=== PATIENT | male | born 1955 | race Caucasian/White ===

== ENCOUNTER 2017-07-01 14:46 | Emergency (ER) | payer BC ==
[2017-07-01] MEDS ORDERED: NITROGLYCERIN 0.4MG SL TABLET #25 BTL SL PRN (15:14)
[2017-07-01 15:32] LABS: BASO % 0.2 % (0-6); EOS % 1.1 % (0-6); HEMATOCRIT 43.2 % (42.0-52.0); HEMOGLOBIN 14.9 gm/dl (14.0-18.0); LYMPH % 9.4 % (16-45); MEAN CELL VOLUME 86.2 fl (81-97); MEAN CORPUSCULAR HEMOGLOBIN 29.7 pg (27-33); MEAN CORPUSCULAR HGB CONC 34.5 g/dl (32-36); MEAN PLATELET VOLUME 9.7 fl (7.4-10.4); MONO % 11.3 % (0-9); PLATELET COUNT 207 K/uL (130-400); RED BLOOD COUNT 5.01 M/uL (4.40-5.70); RED CELL DISTRIBUTION WIDTH 13.5 % (11.5-14.5); WHITE BLOOD COUNT W/O DIFF 9.5 K/uL (4.2-12.2)
[2017-07-01] MEDS: ASPIRIN 81 MG CHEWABLE TABLET PO ONE (15:34)
[2017-07-01 15:51] LABS: PARTIAL THROMBOPLASTIN TIME 28.7 SECONDS (24.5-39.1)
[2017-07-01 16:03] LABS: ALB/GLOB RATIO 1.1 (1.1-1.8); ALBUMIN 3.6 g/dL (4.0-5.0); ALKALINE PHOSPHATASE 116 U/L (40-129); ALT/SGPT 21 U/L (<41); AST/SGOT 18 U/L (10.0-50.0); BLOOD UREA NITROGEN 17 mg/dL (8-23); CREATINE PHOSPHOKINASE 26 U/L (39-308); CREATININE 1.2 mg/dL (0.7-1.2); EST GLOMERULAR FILTRATION RATE > 60 mL/min; GLUCOSE,RANDOM 125 mg/dL (74-109)
[2017-07-01 16:04] LABS: CKMB < 1.0 ng/mL (<6.73); TROPONIN I < 0.30 ng/mL (0.00-0.300)
--- NOTE | 2017-07-01 16:43 | Emergency Department Record ---
History of Present Illness - General Chief Complaint: Chest Pain Stated Complaint: CHEST PAIN Time Seen by Provider: 07/01/17 15:08 Source: Patient Mode of Arrival: Wheelchair Limitations: No limitations - History of Present Illness Initial Comments: pt thought he had a heart attack last night. he took 5 ntg and the pain got better. he had a drenching sweat with it. his pain is a 1 now.he states the pain is like his previous mi pain MD Complaint: Chest pain Onset/Timin -: Hour(s) Onset: During rest Pain Location: Left chest Pain Radiation: None Severity scale (1-10): 4 Quality: Other Consistency: Constant Improves With: Nothing Worsens With: Nothing Anginal Symptoms: Nausea - Related Data Allergies Allergy/AdvReac Type Severity Reaction Status Date / Time No Known Allergies Allergy Unverified 02/26/17 07:15 Travel Screening - Travel/Exposure Within Last 30 Days Have you traveled within the last 30 days?: No Review of Systems Reviewed: No additional complaints except as noted below Constitutional: Reports: As per HPI. Denies: Chills, Fever, Malaise, Night sweats, Weakness, Weight change Eyes: Reports: As per HPI. Denies: Eye discharge, Eye pain, Photophobia, Vision change ENT: Reports: As per HPI. Denies: Congestion, Dental pain, Ear pain, Epistaxis , Hearing loss, Throat pain Respiratory: Reports: As per HPI. Denies: Cough, Dyspnea, Hemoptysis, Stridor, Wheezes Cardiovascular: Reports: As per HPI. Denies: Arrhythmia, Chest pain, Dyspnea on exertion, Edema, Murmurs, Orthopnea, Palpitations, Paroxysmal nocturnal dyspnea, Rheumatic Fever, Syncope Endocrine: Reports: As per HPI. Denies: Fatigue, Heat or cold intolerance, Polydipsia, Polyuria Gastrointestinal: Reports: As per HPI. Denies: Abdominal pain, Constipation, Diarrhea, Hematemesis, Hematochezia, Melena, Nausea, Vomiting Genitourinary: Reports: As per HPI. Denies: Dysuria, Frequency, Hematuria, Incontinence, Retention, Testicular pain, Testicular mass, Urgency Musculoskeletal: Reports: As per HPI. Denies: Arthralgia, Back pain, Gout, Joint swelling, Myalgia, Neck pain Skin: Reports: As per HPI. Denies: Bruising, Change in color, Change in hair/ nails, Lesions, Pruritus, Rash Neurological: Reports: As per HPI. Denies: Abnormal gait, Confusion, Headache, Numbness, Paresthesias, Seizure, Tingling, Tremors, Vertigo, Weakness Psychiatric: Reports: As per HPI. Denies: Anxiety, Auditory hallucinations, Depression, Homicidal thoughts, Suicidal thoughts, Visual hallucinations Hematological/Lymphatic: Reports: As per HPI. Denies: Anemia, Blood Clots, Easy bleeding, Easy bruising, Swollen glands Past Medical History - SOCIAL HISTORY Smoking Status: Former smoker Alcohol Use: Heavy - RESPIRATORY Hx Respiratory Disorders: No - CARDIOVASCULAR Hx Cardio Disorders: Yes Hx Abnormal EKG: Yes Hx Heart Attack: Yes - NEURO Hx Neuro Disorders: No - GI Hx GI Disorders: No - Hx Genitourinary Disorders: No - ENDOCRINE Hx Endocrine Disorders: No - MUSCULOSKELETAL Hx Musculoskeletal Disorders: No - PSYCH Hx Psych Problems: No - HEMATOLOGY/ONCOLOGY Hx Hematology/Oncology Disorders: No Family Medical History Any Significant Family History?: No Physical Exam - General General Appearance: Alert, Oriented x3, Cooperative, Mild distress - Head Head exam: Normal inspection - Eye Eye exam: Normal appearance, PERRL, EOMI Pupils: Normal accommodation - ENT ENT exam: Normal exam, Mucous membranes moist, Normal external ear exam, Normal orophraynx Ear exam: Normal external inspection. negative: External canal tenderness Nasal Exam: Normal inspection. negative: Discharge, Sinus tenderness Mouth exam: Normal external inspection, Tongue normal Teeth exam: Normal inspection. negative: Dental caries Throat exam: Normal inspection. negative: Tonsillar erythema, Tonsillar exudate - Neck Neck exam: Normal inspection, Full ROM. negative: Tenderness - Respiratory Respiratory exam: Normal lung sounds bilaterally. negative: Respiratory distress - Cardiovascular Cardiovascular Exam: Regular rate, Normal rhythm, Normal heart sounds - GI/Abdominal GI/Abdominal exam: Soft, Normal bowel sounds. negative: Tenderness - Rectal Rectal exam: Deferred - exam: Deferred - Extremities Extremities exam: Normal inspection, Full ROM, Normal capillary refill. negative: Tenderness - Back Back exam: Reports: Normal inspection, Full ROM. Denies: Muscle spasm, Rash noted, Tenderness - Neurological Neurological exam: Alert, Normal gait, Oriented X3, Reflexes normal - Psychiatric Psychiatric exam: Normal affect, Normal mood - Skin Skin exam: Dry, Intact, Normal color, Warm Course Vital Signs 07/01/17 14:47 Temperature 97.9 F Pulse Rate 76 Respiratory 24 Rate Blood Pressure 117/73 Pulse Ox 98 - Reevaluation(s) Reevaluation #1: 07/01/17 16:[address] and wants to sign out AMA. he states he wants to go home and that he is ready to . he was warned of the risks but he refused to stay Reevaluation #2: 07/01/17 16:44 pt was told that he could have a blood clot and that it could kill him. he refused to stay Medical Decision Making - Lab Data Result diagrams: 07/01/17 14:55 07/01/17 14:55 Lab Results 07/01/17 07/01/17 07/01/17 Range/Units 14:55 14:55 14:55 WBC 9.5 (4.2-12.2) K/uL RBC 5.01 (4.40-5.70) M/uL Hgb 14.9 (14.0-18.0) gm/dl Hct 43.2 (42.0-52.0) % MCV 86.2 (81-97) fl MCH 29.7 (27-33) pg MCHC 34.5 (32-36) g/dl RDW 13.5 (11.5-14.5) % Plt Count 207 (130-400) K/uL MPV 9.7 (7.4-10.4) fl Gran % 78.0 (47-80) % Lymphocytes % 9.4 L (16-45) % Monocytes % 11.3 H (0-9) % Eosinophils % 1.1 (0-6) % Basophils % 0.2 (0-6) % APTT 28.70 (24.5-39.1) SECONDS D-Dimer 2.15 H (0-0.59) mg/L FEU Sodium 133 L (136-145) mmol/L Potassium 3.7 (3.4-4.5) mmol/L Chloride 96 L (98-107) mmol/L Carbon Dioxide 24.0 (22-29) mmol/L Anion Gap 13.0 (7-16) BUN 17 (8-23) mg/dL Creatinine 1.2 (0.7-1.2) mg/dL Estimated GFR > 60 mL/min Random Glucose 125 H (74-109) mg/dL Calcium 8.9 (8.8-10.2) mg/dL Total Bilirubin 1.50 H (0.2-1.0) mg/dL AST 18 (10.0-50.0) U/L ALT 21 (<41) U/L Alkaline Phosphatase 116 (40-129) U/L Creatine Kinase 26 L (39-308) U/L CK-MB (CK-2) < 1.0 (<6.73) ng/mL Troponin I < 0.30 (0.00-0.300) ng/mL NT-Pro-B Natriuret Pep 176.60 H (<125) pg/mL Total Protein 7.0 (6.6-8.7) g/dL Albumin 3.6 L (4.0-5.0) g/dL Globulin 3.4 (1.4-4.8) gm/dL Albumin/Globulin Ratio 1.1 (1.1-1.8) Disposition Disposition: Other Clinical Impression: Chest pain Qualifiers: Chest pain type: unspecified Qualified Code(s): R07.9 - Chest pain, unspecified Disposition: Against Medical Advice Condition: (3) Guarded Additional Instructions: may return at any time Forms: Patient Portal Access Quality - Quality Measures Quality Measures: N/A - Blood Pressure Screening Does Patient Have Any of the Following: No Blood Pressure Classification: Normal BP Reading Systolic Measurement: 117 Diastolic Measurement: 73 Screening for High Blood Pressure: < Normal BP, F/U Not Required > [G6309]
== END 2017-07-01 16:54 | disposition left against medical advice (07) ==
LOC: ER 14:46
DX: R07.9 Chest pain, unspecified (principal); R11.0 Nausea; I25.2 Old myocardial infarction; Z87.891 Personal history of nicotine dependence
CPT/HCPCS: 80053; 82550; 82553; 83880; 84484; 85025; 85379; 85730; 93005; 93010; 99284

== ENCOUNTER 2017-07-22 13:59 | Day surgery (SDC) | payer BC ==
[~2017-07-22 13:59] MED LIST: ACETAMINOPHEN 1,000 MG/100 ML BTL IV ONE
[2017-07-22] MEDS ORDERED: BUPIVACAINE 0.25% MPF 30ML VIAL IVP ONE (14:00)
[2017-07-22] MEDS ORDERED: PROPOFOL 10 MG/ML VIAL IV ONE (14:00)
[2017-07-22] MEDS ORDERED: HYDROMORPHONE HCL 2 MG/ML VIAL IV ONE (14:00)
[2017-07-22] MEDS ORDERED: LIDOCAINE 2% MDV (20MG/ML) 20ML VIAL IV ONE (14:00)
--- NOTE | 2017-07-23 13:20 | Operative Note ---
DATE OF SURGERY: 07/22/2017 PREOPERATIVE DIAGNOSIS: Left hydrocele. POSTOPERATIVE DIAGNOSIS: Left hydrocele. OPERATION: Left hydrocelectomy. Anesthesia: General. [employer] Fis[employer] Professor: None. Indication: A 62-year-old male with a large left hydrocele. We elected for surgical management. Preoperatively we discussed hydrocelectomy surgery in detail including potential risks of pain, bleeding, infection, iatrogenic injury resulting in testicular loss and possibly recurrence of hydrocele. He indicated understanding and wished to proceed. PROCEDURE: After preop informed consent was obtained, IV antibiotics were given preoperatively. The patient was brought to the operating room and given general LMA anesthesia. Placed supine. The scrotum was clipped, prepped, and draped in the usual sterile fashion and a midline scrotal raphe incision was made, carried down through the dartos layers carefully to the level of the tunica vaginalis which was circumferentially dissected and then opened. Large amount of straw-colored hydrocele fluid was immediately suctioned out and the testicle was then delivered and inspected. There was no evidence of any testicular abnormality. It appeared in correct orientation. The excess hydrocele sac was then carefully excised and passed off the field for pathology analysis. The edges of the tunica vaginalis were then over-sewn with running 3-0 chromic sutures in a baseball stitch type fashion. The testicle was then placed back in the scrotum in its normal anatomic position. Careful hemostasis survey was undertaken, and hemostasis was achieved. The wound was then closed in layers with 2 layers of running 3-0 chromis for the dartos followed by interrupted vertical mattress 3-0 chromic sutures for the skin. Then 6 mL of 0.25% plain Marcaine were used to anesthetize the incision locally. Bacitracin ointment, sterile fluff gauze dressing, and a scrotal support were placed on the patient and the procedure was terminated. He was awakened and then transferred to recovery in stable condition. Blood loss was minimal. Sponge, needle, and instrument counts were correct at the end of the case. There were no intraoperative complications noted. PLAN: The patient will follow up in the clinic in approximately 3 weeks. ANABELLA
== END 2017-07-22 17:20 | disposition home or self-care (01) ==
LOC: SUR 13:59
PROVIDERS: ATTEND Urology
DX: N43.3 Hydrocele, unspecified (principal); F17.200 Nicotine dependence, unspecified, uncomplicated; I25.10 Atherosclerotic heart disease of native coronary artery without angina pectoris

== ENCOUNTER 2018-10-13 17:29 | Emergency (ER) | payer BC ==
[2018-10-13] MEDS ORDERED: TMP/SMZ 160MG/800MG TAB PO ONE (18:23)
--- NOTE | 2018-10-13 18:30 | Emergency Department Record ---
History of Present Illness - General Chief complaint: Extremity Problem Stated complaint: LT KNEE PAIN/HOLE Time Seen by Provider: 10/13/18 18:22 Source: Patient Mode of Arrival: Ambulatory Limitations: No limitations - History of Present Illness Initial comments: 63 yo male presents to ED for evaluation of left sided knee pain for the past 3- 4 days, denies recent injury. Patient reports that the knee was surgically repaired two years ago (does not recall the surgeon's name), reports that there was a sharp piece of bone underneath the skin that may have eroded through the skin resulting in small area of skin loss and white-colored drainage. Patient denies pain with ROM, does report pain with walking and palpation of the area around the "hole". MD Complaint: Joint pain Onset/Timin -: Days(s) Location: Left, Knee History of Same: No -: Yes Arthralgia Quality: Aching Consistency: Constant Improves with: Nothing Worsens with: Palpation, Walking Associated Symptoms: Other ("hole in the knee") - Related Data Previous Rx's Medication Instructions Recorded Sulfamethoxazole/Trimethoprim 1 each PO BID #19 tablet 10/13/18 [Bactrim Ds Tablet] Allergies Allergy/AdvReac Type Severity Reaction Status Date / Time No Known Allergies Allergy HYPERSENSIT Verified 10/13/18 18:28 IVITY Review of Systems Constitutional: Denies: Chills, Fever, Malaise, Night sweats Eyes: Denies: Eye discharge, Eye pain ENT: Denies: Congestion, Ear pain, Epistaxis Respiratory: Denies: Cough, Dyspnea Cardiovascular: Denies: Chest pain, Dyspnea on exertion Endocrine: Denies: Fatigue, Heat or cold intolerance Gastrointestinal: Denies: Abdominal pain, Nausea, Vomiting Genitourinary: Denies: Incontinence, Retention Musculoskeletal: Denies: Arthralgia, Back pain, Gout, Joint swelling Skin: Denies: Bruising, Change in color Neurological: Denies: Abnormal gait, Confusion, Headache, Tingling, Tremors Psychiatric: Denies: Anxiety Hematological/Lymphatic: Denies: Anemia, Blood Clots Past Medical History - SOCIAL HISTORY Drug Use: None - RESPIRATORY Hx Respiratory Disorders: Yes - CARDIOVASCULAR Hx Cardio Disorders: Yes Hx Abnormal EKG: Yes Hx Cardiac Cath: Yes (2015 50 percent blockage no stents) Hx Chest Pain: Yes (seen ED 07-01-17 for pain left AMA refused testing. Pt has stopped hrt meds) Hx Deep Vein Thrombosis: Yes (pt having calf pain for 2-3 mos after scope checking for clot today) Hx Heart Attack: Yes (2014 50 percent damage) Comment:: pt in bed for 1 week 2 weeks ago with diaphoresis and extreme weakness. - NEURO Hx Neuro Disorders: Yes Hx Weakness: Yes (left leg and foot) - GI Hx GI Disorders: No Hx Wt Loss/Wt Gain: Yes (los t 10 lbs 2 wks ago when in bed for 1 week) - Hx Genitourinary Disorders: No Hx Bladder Problem: Yes (up at night 2-3 times) Hx Prostate Problems: Yes (questionable) - ENDOCRINE Hx Endocrine Disorders: No - MUSCULOSKELETAL Hx Musculoskeletal Disorders: No Comment:: pain left calf since knee scope some swelling and reddness - PSYCH Hx Psych Problems: No Comment:: pt denies probs stopped hrt meds says wants to rather than live w pain - HEMATOLOGY/ONCOLOGY Hx Hematology/Oncology Disorders: No Family Medical History Hx Heart Disease: Father, Mother, Brother/Sister Physical Exam - General General Appearance: Alert, Oriented x3, Cooperative, Mild distress Limitations: No limitations - Head Head exam: Atraumatic, Normocephalic, Normal inspection Head exam detail: negative: Abrasion, Contusion, Swanson's sign, General tenderness, Hematoma, Laceration - Eye Eye exam: Normal appearance. negative: Conjunctival injection, Periorbital swelling, Periorbital tenderness, Scleral icterus - ENT Ear exam: negative: Auricular hematoma, Auricular trauma Nasal Exam: negative: Active bleeding, Discharge, Dried blood, Foreign body Mouth exam: negative: Drooling, Laceration, Muffled voice, Tongue elevation - Neck Neck exam: Normal inspection. negative: Meningismus, Tenderness - Respiratory Respiratory exam: Normal lung sounds bilaterally. negative: Respiratory distress, Rhonchi, Stridor, Wheezes - Cardiovascular Cardiovascular Exam: Regular rate, Normal rhythm, Normal heart sounds - GI/Abdominal GI/Abdominal exam: Soft. negative: Rebound, Rigid, Tenderness - Rectal Rectal exam: Deferred - exam: Deferred - Extremities Extremities exam: Tenderness, Other (<1.0 cm area of drainage from the anterior aspect of the left knee, no surround erythema, no pain with ROM to suggest septic joint on examination, no underlying abscess is present (no induration, fluctuance).). negative: Calf tenderness, Pedal edema - Back Back exam: Denies: CVA tenderness (R), CVA tenderness (L) - Neurological Neurological exam: Alert, Normal gait, Oriented X3 - Psychiatric Psychiatric exam: Normal affect, Normal mood - Skin Skin exam: Normal color. negative: Abrasion Type of lesion: negative: abrasion Course - Reevaluation(s) Reevaluation #1: 10/13/18 18:27 Patient was seen and examined. No evidence for septic joint is present on examination. Patient reports a "sharp piece of bone" under the knee following his repair two years ago that may have resulted in the "hole" seen on examination. Will obtain radiographs of the knee to determine if a sharp area of bone is present, initiate treatment with antibiotics. Patient does not want to see the surgeon who performed his surgery 2 years ago, would prefer to see Dr. Lopez that performed his right knee surgery 1 year ago for follow-up. Reevaluation #2: 10/13/18 19:24 Left knee: Stable chronic chnages unchanged from 2017 Scattered calcific densities No subcutaneous air present Case was discussed with Dr. Lopez, will see the patient in follow-up for further evaluation. Patient was updated on all results and has received his first does of antibiotics. Patient appears stable for discharge at this time. 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 Bactrim twice daily as directed. Follow-up with Dr. Lopez in the [facility] as directed. Prescriptions: Sulfamethoxazole/Trimethoprim [Bactrim Ds Tablet] 1 each PO BID #19 tablet Referrals: MICKEY LOPEZ [DOCTOR OF OSTEOPATH] - [facility] [Provider Group] Forms: Patient Portal Access Time of Disposition: 19:28 Quality - Quality Measures Quality Measures: N/A - Blood Pressure Screening Does Patient Have Any of the Following: Active Dx of HTN Blood Pressure Classification: Hypertensive Reading Systolic Measurement: 143 Diastolic Measurement: 72 Screening for High Blood Pressure: Patient Exclusion, Hx of HTN [P6944]
--- NOTE | 2018-10-15 08:13 | RADIOLOGY REPORT ---
EXAM: LEFT KNEE HISTORY: LEFT KNEE PAIN. DRAINING WOUND. TECHNIQUE: Four views of the left knee were obtained. Comparison: Previous left knee series dated 08/01/17. FINDINGS: There is chronic deformity of the patella consistent with previous fracture and surgery. Chronic calcific densities are present along the course of the patellar tendon as well as just superior to the patella and along the lateral aspect of the lateral femoral condyle. These all appear stable. There is soft tissue swelling within the region of the patellar tendon which also appears stable. There is no visible acute osseous abnormality or knee effusion. There is no soft tissue air. There are mild tricompartmental arthritic changes. IMPRESSION: STABLE POST TRAUMATIC AND DEGENERATIVE CHANGES WITHIN THE LEFT KNEE. THERE IS NO VISIBLE ACUTE OSSEOUS ABNORMALITY, JOINT EFFUSION, OR SOFT TISSUE AIR. JOB [facility]BER: [id number] [facility]
== END 2018-10-13 19:35 | disposition home or self-care (01) ==
LOC: ER 17:29
DX: L97.821 Non-pressure chronic ulcer of other part of left lower leg limited to breakdown of skin (principal); M25.562 Pain in left knee; I10 Essential (primary) hypertension
CPT/HCPCS: 99283 ×2; 73564; J3490

== ENCOUNTER 2018-12-04 09:52 | Inpatient (IN) | payer BC ==
[~2018-12-04 09:52] MED LIST changes: -ACETAMINOPHEN 1,000 MG/100 ML BTL IV ONE; +CEFAZOLIN 2 Gram 2 GM/50 ML BAG IVPB ONE; +FAMOTIDINE 20MG TABLET PO ONE; +MECLIZINE 25 MG TABLET PO ONE; +METOCLOPRAMIDE 10 MG TABLET PO ONE
[2018-12-04] MEDS ORDERED: ROPIVACAINE HCL (NAROPIN) /PF 5MG/ML 20ML VIAL IV ONE (13:10)
[2018-12-04] MEDS ORDERED: DEXAMETHASONE 4 MG/ML 1ML VIAL IVP ONE (13:10)
[2018-12-04] MEDS ORDERED: KETAMINE HCL 100MG/1ML VIAL INJ ONE (13:40)
[2018-12-04] MEDS ORDERED: PROPOFOL 10 MG/ML VIAL IV ONE (13:40)
[2018-12-04] MEDS ORDERED: MIDAZOLAM HCL 2MG/2ML VIAL IV ONE (13:40)
[2018-12-04] MEDS ORDERED: GLYCOPYRROLATE 0.2 MG/ML ML IV ONE (13:40)
[2018-12-04] MEDS: RINGERS SOLUTION,LACTATED 1,000 ML IV SCH (14:20)
[2018-12-04] MEDS ORDERED: MAGNESIUM HYDROXIDE 30 ML UDC PO PRN (15:15)
[2018-12-04] MEDS ORDERED: AL HYDROX/MAG HYDROX 30ML UD PO PRN (15:15)
[2018-12-04] MEDS ORDERED: ONDANSETRON HCL IV 4 MG/2 ML VIAL IVP PRN (15:15)
[2018-12-04] MEDS ORDERED: SENNOSIDES/DOCUSATE SODIUM UD CAPSULE PO PRN (15:15)
[2018-12-04] MEDS ORDERED: DIPHENHYDRAMINE HCL 25 MG CAPSULE PO PRN (15:15)
[2018-12-04] MEDS ORDERED: ZOLPIDEM TARTRATE 5 MG TABLET PO PRN (15:15)
[2018-12-04] MEDS ORDERED: METOCLOPRAMIDE HCL 10 MG/2 ML VIAL IVP PRN (15:15)
[2018-12-04] MEDS ORDERED: HYDROMORPHONE HCL 2 MG/ML VIAL IV PRN (15:15)
[2018-12-04] MEDS ORDERED: OXYCODONE HCL/APAP 5MG/325MG TABLET PO PRN ×2 (15:15)
[2018-12-04] MEDS ORDERED: RINGERS SOLUTION,LACTATED 1,000 ML IV PRN (15:49)
--- NOTE | 2018-12-04 17:35 | Rehab Evaluation ---
Patient Information - Patient Information Diagnosis: L patella osteomyelitis Ordered Treatment: PT Evaluate and Treat Status: Initial Evaluation Surgery: Yes (L knee patellectomy) Date of Surgery: 12/04/18 Past Medical/Surgical Hx: PAST MEDICAL/SURGICAL HISTORY Past Surgical History total right knee replacement left knee cap repair appendix c scope PMH - Respiratory Hx Respiratory Disorders Yes Hx of SOB Yes: WITH EXERTION PMH - Cardiovascular Hx Cardiovascular Disorders Yes Hx Abnormal EKG Yes Hx Cardiac Catheterization Yes: 2014 50 percent blockage no stents Hx Chest Pain No: DENIES Hx Deep Vein Thrombosis No: "SMALL BLOOD CLOT LAST YEAR" NO BLOOD THINNERS Hx Heart Attack Yes: 2014 50 percent damage Hx Vascular Disease Yes: PAD LE Hx Coronary Artery Disease Yes Exercise Tolerance Good Comment: pt in bed for 1 week 2 weeks ago with diaphoresis and extreme weakness. PMH - Neuro Hx Neurological Disorders Yes Hx Weakness No: DENIES PMH - GI Hx Gastrointestinal Disorders No Hx Weight Loss/Weight Gain No: STABLE PMH - Hx Genitourinary Disorders No Hx Bladder Problem Yes: NOCTURIA Hx Prostate Problems Yes: questionable PMH - Endocrine Hx Endocrine Disorders No PMH - Musculoskeletal Hx Musculoskeletal Disorders No Hx Arthritis Yes Comment: pain left calf since knee scope some swelling and reddness PMH - Psych Hx Psychiatric Problems No Comment: pt denies probs stopped hrt meds says wants to rather than live w pain PMH - Hematology/Oncology Hx Hematology/Oncology No Disorders Social History: Detail (The patient lives with a friend in a one story house with 5 steps at the enterance . The bathroom is equipped with tub/shower combination and an elevated toiler. There are no grab bars. The patient does all his own housework and meals. The patient states he is working on Friday. The patient has crutches but not a walker.) Precautions: [place], Fall, Other (WBAT on the L LE) - Time With Patient Total Time Spent With Patient (Min): 30 Treatment Procedures: Detail (Initial Evaluation, gait training) Subjective Information - Subjective Information Per Patient (The patient had no pain complaints but still complained of R foot numbness and bilateral buttock numbness.) Objective Data - Mental Status Patient Orientation: Oriented x3 (The patient was impulsive and reluctant to use a walker.) - Visual Perception Appears within normal limits for therapeutic activities - ROM Not within normal limits (The patient's L knee was in an immobilizer. All other LE AROM was WNL.) - Strength/Tone Not within normal limits (The patient's L LE was not tested s/p surgery however was functional in hip and ankle musculature ( knee was immobilized). R LE strength was 5/5.) - Bed Mobility Independent (The patient was independent with supine to and from sit transfer and scooting up in bed.) - Transfers Independent (The patient was independent with sit to and from stand transfer.) - Balance Balance Sitting: Good Balance Standing: Good - Gait Detail (The patient ambulated with supervision for safety with front wheeled walker WBAT on the L LE a distance of 134 feet x 1. Patient required verbal cues for proper technqique and to use walker.( patient attempted ambulating without device). Stairs were not attempted due to unsteadiness of gait due to lingering LE numbness status post surgry.) Therapy Assessment - Therapy Assessment Detail (The patient was independent with bed mobility and transfers. The patient was unsteady with gait and impulsive at times. Feel the patient would be safe walking with walker and not crutches at this point. Feel the patient will progress well with ambulation however unsure if patient will ambulate with device upon discharge.) Problem List - Problem List Physical Therapy Problem List: Detail (1) Impulsivity with ambulation 2) Impaired ambulation s/p surgery) Goals - Goals Physical Therapy Goals: 1) The patient will ambulate on stairs with appropriate assistive device using proper technique independently. 2)The patient will ambulate with appropriate assistive device independently and safely household distances. Prognosis - Prognosis Moderate Plan - Plan Physical Therapy Plan: PT for 1 session for gait training on levels and stairs.
[2018-12-04] MEDS: CEFTRIAXONE SODIUM 2 GM in 0.9 % SODIUM CHLORIDE 100ML 100 ML IVPB SCH (21:37)
[2018-12-04] MEDS: ASPIRIN 325 MG TAB ENTERIC-COATED PO SCH (21:37)
[2018-12-05 06:32] LABS: HEMATOCRIT 41.6 % (42.0-52.0); HEMOGLOBIN 14.6 gm/dl (14.0-18.0); MEAN CELL VOLUME 84.6 fl (81-97); MEAN CORPUSCULAR HEMOGLOBIN 29.7 pg (27-33); MEAN CORPUSCULAR HGB CONC 35.1 g/dl (32-36); MEAN PLATELET VOLUME 8.9 fl (7.4-10.4); PLATELET COUNT 206 K/uL (130-400); RED BLOOD COUNT 4.92 M/uL (4.40-5.70); WHITE BLOOD COUNT W/O DIFF 14.1 K/uL (4.2-12.2)
[2018-12-05] MEDS: RINGERS SOLUTION,LACTATED 1,000 ML IV SCH (08:04)
[2018-12-05] MEDS: ASPIRIN 325 MG TAB ENTERIC-COATED PO SCH (10:16)
--- NOTE | 2018-12-05 10:25 | Physical Therapy Tx Note ---
Physical Therapy Tx Note - Treatment Note Tolerated: Good (Patient doing extremely well this am and ready to go home. Has been ambulating in his room without any assistive device, only knee immobilizer in place and he is safe.) Total Time Spent With Patient: 15 Physical Therapy Tx Note: Detail (Patient seen in room, sitting edge of bed with immobilizer on leg, stood with no assistance from bed, stepped toward therapist. Therapist handed patient a single crutch then placed gait belt around waist for safety then he ambulated 120 feet down bear with crutch on right side, SBA only to stairs, ambulated down stairs correctly with no assistance except crutch and rail 12 steps then pivoted around and ambulated back up stairs safely and correctly with one crutch and no rail use. Balance very good. Ambulated back to room and even able to lift crutch up with full weightbearing left LE and no pain safely on flat surface. Left patient in room and he is independent with mobility.) Physical Therapy Problem List: Detail (1) Impulsivity with ambulation 2) Impaired ambulation s/p surgery) Physical Therapy Goals: 1) The patient will ambulate on stairs with appropriate assistive device using proper technique independently. 2)The patient will ambulate with appropriate assistive device independently and safely household distances. Prognosis: Good (Patient has met and exceeded goals to be discharged home safely.) Physical Therapy Plan: PT for 1 session for gait training on levels and stairs.
[2018-12-05] MEDS: CEFTRIAXONE SODIUM 2 GM in 0.9 % SODIUM CHLORIDE 100ML 100 ML IVPB SCH (11:08)
--- NOTE | 2018-12-07 07:55 | RADIOLOGY REPORT ---
EXAM: PORTABLE CHEST HISTORY: DIFFICULTY IN BREATHING. TECHNIQUE: A portable AP upright view of the chest was performed. FINDINGS: Right sided PICC line tip in the superior vena cava. The heart size is normal. The lung winter are clear. No pneumothorax.. IMPRESSION: RIGHT SIDED PICC LINE TIP IN SATISFACTORY POSITION. NO ACUTE PROCESS. JOB NUMBER: [id number] MTDD
--- NOTE | 2018-12-07 09:40 | Operative Note ---
DATE OF SURGERY: 12/04/2018 Surgeon: Hasmukh Goss D.O. Referring physician: Meghan Ortiz M.D. PREOPERATIVE DIAGNOSIS: Osteomyelitis of the left patella. POSTOPERATIVE DIAGNOSIS: Osteomyelitis of the left patella. OPERATION: Patellectomy left knee. Anesthesia: Spinal. PROCEDURE: This 63-year-old male was taken to the operating room and placed in the supine position on the operating room table. A spinal anesthetic was induced and the left lower extremity was prepped with Hibiclens and draped in the usual sterile fashion. Once this had been performed, a bump was placed under his left hip to help internally rotate the left lower extremity. The leg was held elevated for several minutes and the tourniquet inflated to 300 mmHg. An incision was made utilizing his previous incision and this was incised a distance of approximately 4 to 5 inches. Dissection was carried down through the skin and subcutaneous tissue. He had an open wound, which is approximately 3 cm in diameter in the center of the patella, which was sticking out of the skin. The edges were debrided and some undermining of the skin was necessary for us to be able to develop flaps to repair this. We then used sharp dissection to circumferentially release the patella from its attachments and the patella was removed and sent to pathology for evaluation and aerobic and anaerobic culture. Once the patella had been removed, the wound did not appear infected. The knee was copiously irrigated with pulse lavage lactated Ringer's solution. 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 Once we debrided the edges and did some minimal undermining to allow us to be able to close the wound, then we attempted to repair this by doing a circumferential stitch around the patella. As much as I pulled to make a purse-string, this was difficult at best because of the fibrosis which was present from the longstanding previous attempted internal fixation and scarring which had occurred. We then did a side to side repair with #5 FiberWire suture. This dramatically closed the gap and then we pulled the purse-string sutures and then tied that as well. A very, very tiny opening at the top remained and we are able to pull this together with figure-of-8 #2 FiberWire suture. This gave us what I felt was a good closure and would be stable once the scarring had occurred for healing. The wound was irrigated multiple times during the procedure and the skin was then closed with 3-0 Vicryl subcutaneous tissue and the skin closed with 3-0 nylon suture. Because of the opening that was present, and we utilized the previous incision, which was medial to the opening and it just skirted the edge of the circumferential opening, we closed the longitudinal part of the incision and because the patella had been removed, we had enough soft tissue and skin to pull this together with no tension, and so therefore, after we debrided what appeared to be inflamed edges of skin, we were able to get this closed in a perpendicular fashion to the longitudinal incision. The wound was then sterilely dressed and a knee immobilizer was applied. The patient was taken to the recovery room in satisfactory condition. GROSS PATHOLOGY: This patient demonstrated an infection of his patella, but there did not appear to be soft tissue infection. This was very localized with the patella removed. The skin and soft tissues did not appear to be infected in any way. We did debride the edges of the skin, as well as the edges circumferentially around the patella. We were able to get the patella back together, both side to side and proximal to distal. ANABELLA
--- NOTE | 2018-12-07 09:50 | Discharge Summary ---
DATE OF ADMISSION: 12/04/2018 DATE OF DISCHARGE: 12/05/2018 SURGEON: Hasmukh Goss DO ADMITTING DIAGNOSIS: Osteomyelitis of the left patella. DISCHARGE DIAGNOSIS: Osteomyelitis of the left patella. OPERATIVE PROCEDURE: Patellectomy on 12/04/2018. HISTORY OF PRESENT ILLNESS: This 63-year-old male was admitted to the hospital for patellectomy of the left patella. A PICC line was also placed and he was kept overnight for observation, and progressed very well, not needing pain medication and showed no signs of wound complication. Dressing intact and dry. The patient will be discharged home. Keep the wound clean and dry. He will keep the knee immobilizer in place. I will have him take aspirin 325 mg daily and he will follow up in the clinic in 4 days for re-evaluation and dressing change. He was instructed to call my office should he have any problems prior to being seen. He will continue on with the 2 grams of Rocephin daily, which he will receive through his PICC line on a daily basis at [facility]. MTDJeremias
== END 2018-12-05 12:00 | disposition home or self-care (01) | DRG 487 ==
LOC: MEDSURG 09:52
PROVIDERS: ADMIT Orthopaedic Surgery; ATTEND Orthopaedic Surgery
PROC: 0QTF0ZZ Resection of Left Patella, Open Approach (ICD-10-PCS; principal; 2018-12-04 12:00)
DX: M86.9 Osteomyelitis, unspecified (principal); I10 Essential (primary) hypertension; I25.10 Atherosclerotic heart disease of native coronary artery without angina pectoris; I25.2 Old myocardial infarction
CPT/HCPCS: 71045; 85025; 87070; J3490; J7120